=== PATIENT | female | born 1985 | race Caucasian/White ===

== ENCOUNTER 2016-07-25 10:04 | Emergency (ER) | payer OTHER ==
[~2016-07-25 10:04] MED LIST: ACETAMINOPHEN PO; AMOXICILLIN500 M1 PO; ANTIVERT; AUGMENTIN; BACTRIM DS TABL1 TA1 PO; FIORINAL 50-321 EACH; IBUPROFEN600 MG PO; KEFLEX500 MG PO; NO MEDICATIONS; PEN-VEE K PO; PRENATAL1 TA1 PO; TAMIFLU75 M1 PO; ULTRAM PO
== END 2016-07-25 11:42 | disposition home or self-care (01) ==
LOC: SED 10:04
DX: G43.909 Migraine, unspecified, not intractable, without status migrainosus (principal); F17.200 Nicotine dependence, unspecified, uncomplicated; Z98.890 Other specified postprocedural states
CPT/HCPCS: 96372; 99283; J1885

== ENCOUNTER 2016-07-31 11:25 | Emergency (ER) | payer OTHER ==
[2016-07-31 11:40] LABS: URINE SOURCE CLEAN CATCH
[2016-07-31 11:56] LABS: URINE APPEARANCE CLEAR; URINE BILIRUBIN NEG (NEG); URINE BLOOD NEG (NEG); URINE COLOR YELLOW; URINE GLUCOSE NEG (NORM); URINE KETONE NEG (NEG); URINE LEUKOCYTE ESTERASE 1+ (NEG); URINE NITRATE NEG (NEG); URINE PROTEIN 1+ (NEG); URINE SPECIFIC GRAVITY 1.015 (1.003-1.035); URINE UROBILINOGEN 0.2 MG/DL (NORM)
[2016-07-31 12:05] LABS: MICRO INDICATED? YES
[2016-07-31 12:20] LABS: CULTURE INDICATED? YES; URINE BACTERIA 1+ (NEG); URINE SQUAMOUS EPITHELIAL CELL MODERATE /[HPF]; URINE WBC 25-50 /[HPF] (0-5)
[2016-07-31 12:21] LABS: URINE MUCUS PRESENT
== END 2016-07-31 12:30 | disposition home or self-care (01) ==
LOC: SED 11:25
PROVIDERS: Physician Assistant
DX: N39.0 Urinary tract infection, site not specified (principal); G43.909 Migraine, unspecified, not intractable, without status migrainosus; Z98.51 Tubal ligation status; Z88.1 Allergy status to other antibiotic agents; F17.210 Nicotine dependence, cigarettes, uncomplicated
CPT/HCPCS: 81003; 84703; 87086; 99283